=== PATIENT | female | born 1955 | race African-American/Black ===

== ENCOUNTER 2024-08-06 09:46 | Emergency (ER) | payer MEDICARE ==
[2024-08-06] MEDS ORDERED: Calcium Chloride 1 GM/10 ML Abboject SYRINGE ONE (09:50)
[2024-08-06] MEDS ORDERED: Sodium Bicarb 50 MEQ/50 ML Abboject 8.4% SYRINGE ONE (09:50)
[2024-08-06] MEDS ORDERED: EPINEPHrine 1 MG/10 ML Abboject SYRINGE ONE (09:50)
[2024-08-06] MEDS ORDERED: Amiodarone 150 MG/3 ML VIAL ONE (09:50)
== END 2024-08-06 10:09 | disposition expired ==
LOC: ERS 09:46
DX: I46.9 Cardiac arrest, cause unspecified (principal); I49.01 Ventricular fibrillation; I10 Essential (primary) hypertension
CPT/HCPCS: 82962; 92950; 96374; 99285; J0171; J0282; 36416